=== PATIENT | male | born 2000 | race Caucasian/White ===

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

== ENCOUNTER 2023-10-20 01:35 | Emergency (ER) | payer OTHER ==
[~2023-10-20] VITALS: Ht 180.3 cm; Wt 82.6 kg
[~2023-10-20 01:35] MED LIST: ALBU0.0912 IH; PRED20TA5 PO
[2023-10-20 02:10] VITALS: BP 148/94; PULSE 84; RESP 20; TEMP 97.7; O2SAT 98
[2023-10-20] MEDS: ALBUTEROL SULFATE/IPRATROPIU 3 ML SOL IH ONE ×2 (03:12→04:14)
[2023-10-20 03:13] VITALS: PULSE 76; RESP 18; O2SAT 93
[2023-10-20] MEDS: predniSONE 20 MG TAB PO ONE (03:23)
[2023-10-20 03:57] VITALS: O2SAT 99
[2023-10-20 04:15] VITALS: PULSE 71; RESP 16; O2SAT 95
[2023-10-20] MEDS: AZITHROMYCIN 250 MG TAB PO ONE (04:20)
[2023-10-20] MEDS ORDERED: PRED20TA5 PO (05:25)
[2023-10-20] MEDS ORDERED: AZIT250T11 PO (05:25)
[2023-10-20] MEDS ORDERED: ALBU0.0912 IH (08:07)
== END 2023-10-20 05:31 | disposition home or self-care (01) ==
LOC: MED 01:35
DX: J45.901 Unspecified asthma with (acute) exacerbation (principal); J20.9 Acute bronchitis, unspecified; Z79.899 Other long term (current) drug therapy
CPT/HCPCS: 71045; 94640; 99283; J7512; Q0092